=== PATIENT | male | born 1970 | race Two or more races ===

== ENCOUNTER 2023-09-12 11:05 | Emergency (ER) | payer BC, OTHER ==
[~2023-09-12] VITALS: Ht 172.7 cm; Wt 99.8 kg
[2023-09-12 13:20] LABS: APPEARANCE,URINE CLEAR (CLEAR); BILIRUBIN,URINE NEGATIVE (NEGATIVE); BLOOD, URINE TRACE-INTA Ery/uL (NEGATIVE); COLOR,URINE YELLOW (YELLOW); KETONES,URINE NEGATIVE (NEGATIVE); LEUKOCYTE ESTERASE ,URINE NEGATIVE (NEGATIVE); NITRITE, URINE NEGATIVE (NEGATIVE); PROTEIN,URINE NEGATIVE (NEGATIVE); UGLUCOSE NEGATIVE (NEGATIVE); UROBILINOGEN,URINE 0.2 EU/dL (0.2)
[2023-09-12 13:21] LABS: ADD URINE CULTURE NO; BACTERIA,URINE Rare /HPF (None Seen); SQUAMOUS EPITHELIAL CELL,UR Few /HPF (None Seen); WBC,URINE 0-2 /HPF (0-3)
[2023-09-12 13:45] VITALS: BP 142/98; TEMP 99.6; O2SAT 100
== END 2023-09-12 13:45 | disposition home or self-care (01) ==
LOC: ER 11:09
DX: B34.9 Viral infection, unspecified (principal); I10 Essential (primary) hypertension; Z20.822 Contact with and (suspected) exposure to COVID-19
CPT/HCPCS: 71045-TC; 81001

== ENCOUNTER 2024-11-28 23:48 | Emergency (ER) | payer BC, OTHER ==
[~2024-11-28] VITALS: Ht 167.6 cm; Wt 63.5 kg
[~2024-11-28 23:48] MED LIST: AMLO-213 PO; LOSA50TA3 PO
[2024-11-28 23:58] VITALS: BP 135/84; TEMP 98.3; O2SAT 99
[2024-11-29] MEDS ORDERED: SILVER NITRATE APPLICATOR 1 EA BOX ONE (00:24)
[2024-11-29] MEDS ORDERED: LIDOCAINE 1%-EPI 1:100,000 20 ML VIAL ONE (00:25)
[2024-11-29 00:36] LABS: BASOPHILS # (AUTO) 0.1 K/uL (0.0-0.2); BASOPHILS % (AUTO) 0.9 % (0.0-2.0); EOSINOPHILS # (AUTO) 0.3 K/uL (0.0-0.7); EOSINOPHILS % (AUTO) 4.6 % (0.0-6.0); HEMATOCRIT 42 % (39-51); HEMOGLOBIN 14.2 g/dL (13.5-17.5); LYMPHOCYTES # (AUTO) 1.8 K/uL (0.8-4.8); LYMPHOCYTES % (AUTO) 28.9 % (20.0-44.0); MEAN CORPUSCULAR HEMOGLOBIN 28 PG (26.0-33.0); MEAN CORPUSCULAR HGB CONC 34 g/dl (31.0-36.0); MEAN CORPUSCULAR VOLUME 84 fL (80-96); MONOCYTES # (AUTO) 0.7 K/uL (0.1-1.30); MONOCYTES % (AUTO) 11.3 % (2.0-12.0); NEUTROPHILS # (AUTO) 3.4 K/uL (1.8-8.9); NEUTROPHILS % (AUTO) 54.3 % (43.0-81.0); PLATELET COUNT (AUTO) 237 K/uL (150-450); RED BLOOD CELL COUNT(AUTO) 5.05 MIL/uL (4.5-6.0); RED CELL DISTRIBUTION WIDTH 13.7 % (11.5-15.0); WHITE BLOOD COUNT (AUTO) 6.2 K/uL (4.3-11.0)
[2024-11-29] MEDS: LIDOCAINE 1%-EPI 1:100,000 20 ML VIAL TP ONE (00:51)
[2024-11-29] MEDS: SILVER NITRATE APPLICATOR 1 EA BOX TP ONE (00:51)
[2024-11-29 00:52] LABS: INR 0.97 (0.91-1.10); PARTIAL THROMBOPLASTIN TIME 24.7 SEC (24.3-34.3); PROTHROMBIN TIME 10.3 SECS (9.2-11.1)
== END 2024-11-29 02:43 | disposition home or self-care (01) ==
LOC: ER 23:51
DX: S10.93XA Contusion of unspecified part of neck, initial encounter (principal); I10 Essential (primary) hypertension; Z79.899 Other long term (current) drug therapy; W26.8XXA Contact with other sharp object(s), not elsewhere classified, initial encounter; Y93.89 Activity, other specified; Y92.89 Other specified places as the place of occurrence of the external cause; Y99.8 Other external cause status
CPT/HCPCS: 99283; 36415; 85025; 85730; J3490